=== PATIENT | male | born 1930 | race Caucasian/White ===

== ENCOUNTER 2017-06-13 20:05 | Inpatient (IN) | payer OTHER, MEDICARE ==
[~2017-06-13] VITALS: Ht 180.3 cm; Wt 106.5 kg
[~2017-06-13 20:05] MED LIST: ACETAMINOPHEN500 MG PO; AEROBID INHALER7 GM IH; ALPHAGAN 0100 DROP/5 RIGHT EYE; AMPICILLIN2 GM IV; ASPIR 8181 M1 PO; ASPIR-LOW81 MG PO; ASPIRIN81 M1 PO; Alphagan P 0.15% Oph BOTH EYES; Aspirin E.C. PO; BRIMONIDINE TART5 ML BOTH EYES; BRIMONIDINE TART5 ML OP; COSOPT EYE DROPS5 ML RIGHT EYE; CYANOCOBALAM1000 MCG PO; Colace PO; DuoNeb IH; FINASTERIDE5 MG PO; FLOMAX0.4 MG PO; FLONASE16 G1 BOTH NARES; FLUNISOLIDE25 ML BOTH NARES; FUROSEMIDE20 MG PO; FUROSEMIDE40 MG PO; Flomax PO; Flovent 110 mcg IH; GLIPIZIDE5 MG PO; GLUCOTROL5 MG PO; Gentamicin Sulfate IV; Glucotrol PO; K-DUR20 MEQ PO; Keflex PO; LASIX20 MG PO; LATANOPROST2.5 ML RIGHT EYE; LIDOCAINE700 MG TD; LORATADINE10 M2 PO; Lasix PO; METFORMIN HCL500 MG PO; NOVOLOG PE100 UNITS/ SC; OMEGA POWER 11050 MG PO; OMEGA-31000 M1 PO; Proscar PO; Protonix PO; TAMSULOSIN HCL0.4 MG PO; TRAMADOL HCL50 MG PO; TRAVATAN Z5 ML RIGHT EYE; TRUSOPT5 ML RIGHT EYE; TYLENOL EXTRA500 MG PO; TYLENOL REGULA325 MG PO; Trusopt 2% Ophth Sol BOTH EYES; VASOTEC2.5 MG PO; VASOTEC5 MG PO; VITAMIN B12 100MCG PO; VITAMIN D31000 UNI2 PO; Vasotec PO; ZOCOR20 MG PO; ZOCOR40 MG PO; ZOCOR80 MG PO; Zocor PO; predniSONE PO
[2017-06-13 21:06] LABS: HEMATOCRIT 21.6 % (38.0-50.0); MCV 93.5 FL (86-99); MEAN PLAT.VOLUME 9.5 uM^3 (9.0-12.4); PLATELET COUNT 241 K/uL (156-360); RBC DIS.WIDTH-CV 13.3 % (11.8-14.6); RBC DIS.WIDTH-SD 45.1 % (39-53); RED BLOOD COUNT 2.31 M/uL (4.00-5.50); WHITE BLOOD COUNT 9.1 K/uL (4.1-10.2)
[2017-06-13 21:07] LABS: CHLORIDE 103 mEq/L (99-109); POTASSIUM 4.4 mEq/L (3.7-5.4); SODIUM 137 mEq/L (136-147)
[2017-06-13 21:08] LABS: GLUCOSE 190 mg/dL (70-99)
[2017-06-13 21:10] LABS: ANION GAP 9 MEQ/L (2-14)
[2017-06-13 21:12] LABS: GFR ESTIMATE (CALCULATED) 44 mL/min/
[2017-06-13 21:13] LABS: UREA NITROGEN (BUN) 35 mg/dL (9-23)
[2017-06-13 21:39] LABS: INTER. NORMALIZED RATIO 1.1; PROTHROMBIN TIME 12.4 SEC (10.2-12.9)
[2017-06-13 21:42] LABS: PTT 29.1 SEC (25-37)
[2017-06-13 21:48] LABS: TOTAL BILIRUBIN 0.3 mg/dL (0.0-1.0)
[2017-06-13 21:49] LABS: ALKALINE PHOSPHATASE 48 IU/L (3-129)
[2017-06-13 21:52] LABS: DIRECT BILIRUBIN 0.1 mg/dL (0.0-0.3)
[2017-06-13 21:53] LABS: LIPASE 12 U/L (1.0-51.0)
[2017-06-13 21:59] LABS: TROP-I INTERPRETATION NEGATIVE; TROPONIN-I < 0.01 ng/mL (0.0-0.30)
[2017-06-14] VITALS (15 sets, daily range): BP systolic 138–171; BP diastolic 60–78
[2017-06-14 08:12] LABS: TROP-I INTERPRETATION NEGATIVE; TROPONIN-I < 0.01 ng/mL (0.0-0.30)
[2017-06-14 10:50] LABS: EOSINOPHIL (%) 1.1 % (0-5); EOSINOPHIL COUNT 0.1 K/uL (0-0.3); HEMATOCRIT 30.6 % (38.0-50.0); IMMATURE GRANULOCYTE (%) 0.6 % (0.0-0.7); IMMATURE GRANULOCYTE COUNT 0.1 K/uL; INSTRUMENT ABS NEUTROPHIL CT 6.5 K/uL; MCHC 32.7 G/DL (30.0-36.0); MCV 91.9 FL (86-99); MEAN PLAT.VOLUME 9.5 uM^3 (9.0-12.4); MONOCYTE (%) 9.2 % (3-12); MONOCYTE COUNT 0.8 K/uL (0-0.8); NEUTROPHIL (%) 76.7 % (45-76); NEUTROPHIL COUNT 6.5 K/uL (1.8-6.4); PLATELET COUNT 226 K/uL (156-360); RBC DIS.WIDTH-CV 14.6 % (11.8-14.6); RBC DIS.WIDTH-SD 48.7 % (39-53); WHITE BLOOD COUNT 8.5 K/uL (4.1-10.2)
[2017-06-14 10:54] LABS: RED BLOOD COUNT 3.33 M/uL (4.00-5.50)
[2017-06-14 11:24] LABS: ANION GAP 7 MEQ/L (2-14); CHLORIDE 102 MEQ/L (99-109); POTASSIUM 4.7 MEQ/L (3.7-5.4); SAMPLE HEMOLYSIS CHECK 0; SAMPLE ICTERIC CHECK 0; SAMPLE LIPEMIA CHECK 0; SODIUM 136 MEQ/L (136-147)
[2017-06-14 11:30] LABS: GFR ESTIMATE (CALCULATED) 56 mL/min/; GLUCOSE 234 mg/dL (70-99); UREA NITROGEN (BUN) 33 mg/dL (9-23)
[2017-06-14 12:08] LABS: POINT-OF-CARE METER ID UU14314088
[2017-06-14 12:21] LABS: TROP-I INTERPRETATION NEGATIVE; TROPONIN-I 0.01 ng/mL (0.0-0.30)
[2017-06-14 16:41] LABS: POINT-OF-CARE METER ID UU14107333
[2017-06-14 18:49] LABS: POINT-OF-CARE METER ID UU14314088
[2017-06-14 21:00] LABS: HEMATOCRIT 31.8 % (38.0-50.0); MCV 91.6 FL (86-99)
[2017-06-15] VITALS (7 sets, daily range): BP systolic 128–173; BP diastolic 58–75
[2017-06-15 00:16] LABS: POINT-OF-CARE METER ID UU14314088
[2017-06-15 01:21] LABS: HEMATOCRIT 29.9 % (38.0-50.0); MCV 90.9 FL (86-99)
[2017-06-15 06:33] LABS: POINT-OF-CARE METER ID UU14314088
[2017-06-15 07:09] LABS: EOSINOPHIL (%) 1.9 % (0-5); EOSINOPHIL COUNT 0.2 K/uL (0-0.3); HEMATOCRIT 30.4 % (38.0-50.0); HEMATOCRIT 31.4 % (38.0-50.0); IMMATURE GRANULOCYTE (%) 0.4 % (0.0-0.7); INSTRUMENT ABS NEUTROPHIL CT 5.8 K/uL; MCH 29.3 PG (29.0-34.0); MCHC 31.5 G/DL (30.0-36.0); MCV 91.8 FL (86-99); MCV 92.9 FL (86-99); MONOCYTE (%) 10.6 % (3-12); MONOCYTE COUNT 0.8 K/uL (0-0.8); NEUTROPHIL (%) 74.3 % (45-76); NEUTROPHIL COUNT 5.8 K/uL (1.8-6.4); RBC DIS.WIDTH-CV 14.8 % (11.8-14.6); RBC DIS.WIDTH-SD 49.8 % (39-53); RED BLOOD COUNT 3.38 M/uL (4.00-5.50); WHITE BLOOD COUNT 7.8 K/uL (4.1-10.2)
[2017-06-15 07:31] LABS: ALKALINE PHOSPHATASE 53 IU/L (3-129); ANION GAP 8 MEQ/L (2-14); CHLORIDE 100 MEQ/L (99-109); GFR ESTIMATE (CALCULATED) 51 mL/min/; GLUCOSE 220 mg/dL (70-99); MAGNESIUM 2.2 mg/dl (1.3-2.7); POTASSIUM 4.3 MEQ/L (3.7-5.4); SAMPLE HEMOLYSIS CHECK 0; SAMPLE ICTERIC CHECK 0; SAMPLE LIPEMIA CHECK 0; SODIUM 137 MEQ/L (136-147); TOTAL BILIRUBIN 0.8 MG/DL (0.0-1.0); UREA NITROGEN (BUN) 25 mg/dL (9-23)
[2017-06-15 07:36] LABS: PLAT.SUFFICIENCY ADEQUATE; PLATELET CLUMPS PRESENT - PLATELET COUNT APPEARS ADQ.; PLATELET COUNT UNABLE TO REPORT K/uL (156-360)
[2017-06-15 08:00] LABS: POINT-OF-CARE METER ID UU14314088; POINT-OF-CARE USER ID ENVKC36
[2017-06-15 11:23] LABS: POINT-OF-CARE METER ID UU14174216; POINT-OF-CARE USER ID ENVKC36
[2017-06-15 16:27] LABS: POINT-OF-CARE METER ID UU13113819
[2017-06-15 18:16] LABS: POINT-OF-CARE METER ID UU14314088
[2017-06-15 22:08] LABS: POINT-OF-CARE METER ID UU14174216
[2017-06-16] VITALS (7 sets, daily range): BP systolic 108–171; BP diastolic 57–76
[2017-06-16 07:00] LABS: EOSINOPHIL COUNT 0.1 K/uL (0-0.3); HEMATOCRIT 28.9 % (38.0-50.0); IMMATURE GRANULOCYTE (%) 0.4 % (0.0-0.7); INSTRUMENT ABS NEUTROPHIL CT 5.3 K/uL; LYMPHOCYTE COUNT 0.8 K/uL (1.0-2.8); MCH 28.9 PG (29.0-34.0); MCHC 31.1 G/DL (30.0-36.0); MCV 92.9 FL (86-99); MEAN PLAT.VOLUME 9.4 uM^3 (9.0-12.4); MONOCYTE (%) 11.3 % (3-12); MONOCYTE COUNT 0.8 K/uL (0-0.8); NEUTROPHIL (%) 74.4 % (45-76); NEUTROPHIL COUNT 5.3 K/uL (1.8-6.4); PLATELET COUNT 226 K/uL (156-360); RBC DIS.WIDTH-CV 14.5 % (11.8-14.6); RBC DIS.WIDTH-SD 48.7 % (39-53); RED BLOOD COUNT 3.11 M/uL (4.00-5.50); WHITE BLOOD COUNT 7.1 K/uL (4.1-10.2)
[2017-06-16 07:22] LABS: ANION GAP 6 MEQ/L (2-14); CHLORIDE 100 MEQ/L (99-109); GFR ESTIMATE (CALCULATED) 47 mL/min/; GLUCOSE 193 mg/dL (70-99); POTASSIUM 3.7 MEQ/L (3.7-5.4); SAMPLE HEMOLYSIS CHECK 0; SAMPLE ICTERIC CHECK 0; SAMPLE LIPEMIA CHECK 0; SODIUM 139 MEQ/L (136-147); UREA NITROGEN (BUN) 18 mg/dL (9-23)
[2017-06-16 11:48] LABS: POINT-OF-CARE METER ID UU14107333
[2017-06-16 12:28] LABS: POINT-OF-CARE METER ID UU13113675
[2017-06-16] MEDS ORDERED: FERROUS SULFAT325 MG PO (13:41)
[2017-06-16] MEDS ORDERED: HYDROCORTISONE30 G1 TP (13:41)
[2017-06-16 21:11] LABS: POINT-OF-CARE METER ID UU14188625; POINT-OF-CARE USER ID 603211116
[2017-06-17] VITALS (10 sets, daily range): BP systolic 92–174; BP diastolic 50–76
[2017-06-17 05:13] LABS: EOSINOPHIL (%) 2.1 % (0-5); EOSINOPHIL COUNT 0.2 K/uL (0-0.3); IMMATURE GRANULOCYTE (%) 0.5 % (0.0-0.7); INSTRUMENT ABS NEUTROPHIL CT 5.7 K/uL; LYMPHOCYTE COUNT 0.9 K/uL (1.0-2.8); MCHC 31.4 G/DL (30.0-36.0); MCV 92.4 FL (86-99); MEAN PLAT.VOLUME 9.3 uM^3 (9.0-12.4); MONOCYTE (%) 10.9 % (3-12); MONOCYTE COUNT 0.8 K/uL (0-0.8); NEUTROPHIL (%) 74.1 % (45-76); NEUTROPHIL COUNT 5.7 K/uL (1.8-6.4); PLATELET COUNT 222 K/uL (156-360); RBC DIS.WIDTH-CV 14.2 % (11.8-14.6); RBC DIS.WIDTH-SD 47.7 % (39-53); RED BLOOD COUNT 3.14 M/uL (4.00-5.50); WHITE BLOOD COUNT 7.7 K/uL (4.1-10.2)
[2017-06-17 05:31] LABS: CHLORIDE 101 mEq/L (99-109); POTASSIUM 3.7 mEq/L (3.7-5.4); SODIUM 141 mEq/L (136-147)
[2017-06-17 05:34] LABS: GLUCOSE 178 mg/dL (70-99)
[2017-06-17 05:35] LABS: ANION GAP 9 MEQ/L (2-14)
[2017-06-17 05:37] LABS: ALKALINE PHOSPHATASE 52 IU/L (3-129); GFR ESTIMATE (CALCULATED) 47 mL/min/
[2017-06-17 05:38] LABS: TOTAL BILIRUBIN 0.5 mg/dL (0.0-1.0); UREA NITROGEN (BUN) 13 mg/dL (9-23)
[2017-06-17 07:42] LABS: POINT-OF-CARE METER ID UU13113717
[2017-06-17 12:27] LABS: POINT-OF-CARE METER ID UU13113717
[2017-06-17 17:26] LABS: POINT-OF-CARE METER ID UU13113717
[2017-06-17 21:53] LABS: POINT-OF-CARE METER ID UU13113675
[2017-06-17 22:03] LABS: BASE EXCESS 6.9 mEq/L (-3 to +3); BICARBONATE 31.3 mEq/L (22-26); CARBOXY HGB 1.7 % (0-5); COMMENTS - BLOOD GASES C+A+; DEVICE 980 VENT; FI02 40 %; MECHANICAL RATE 10 resp/min; METHEMOGLOBIN 1.8 % (0-1.5); MODE SIMV; PCO2 43 mm Hg (35-45); PEEP 5 CM/H20; PO2 101 mm Hg (80-100); PRES. SUPPORT 12 CM/H2O; SITE LR; TIDAL VOLUME 500 ML; TOTAL RESP RATE 10 resp/min; pH 7.47 (7.35-7.45)
[2017-06-17 22:11] LABS: HEMATOCRIT 29.6 % (38.0-50.0); MCH 28.8 PG (29.0-34.0); MCHC 31.4 G/DL (30.0-36.0); MCV 91.6 FL (86-99); MEAN PLAT.VOLUME 9.3 uM^3 (9.0-12.4); PLATELET COUNT 223 K/uL (156-360); RBC DIS.WIDTH-CV 13.8 % (11.8-14.6); RBC DIS.WIDTH-SD 45.8 % (39-53); RED BLOOD COUNT 3.23 M/uL (4.00-5.50); WHITE BLOOD COUNT 13.6 K/uL (4.1-10.2)
[2017-06-17 22:21] LABS: ANION GAP 7 MEQ/L (2-14); CHLORIDE 100 MEQ/L (99-109); POTASSIUM 3.4 MEQ/L (3.7-5.4); SAMPLE HEMOLYSIS CHECK 0; SAMPLE ICTERIC CHECK 0; SAMPLE LIPEMIA CHECK 0; SODIUM 135 MEQ/L (136-147)
[2017-06-17 22:26] LABS: GFR ESTIMATE (CALCULATED) 51 mL/min/; GLUCOSE 172 mg/dL (70-99); UREA NITROGEN (BUN) 12 mg/dL (9-23)
[2017-06-18] VITALS (27 sets, daily range): BP systolic 82–159; BP diastolic 33–68
[2017-06-18 00:09] LABS: POINT-OF-CARE METER ID UU14314082
[2017-06-18 00:15] LABS: METH RESISTANT S AUREUS PCR NEGATIVE (NEGATIVE)
[2017-06-18 00:18] LABS: SPECIMEN PROCESSING CONTROL PASS
[2017-06-18 00:19] LABS: PROBE CHECK PASS
[2017-06-18 04:45] LABS: HEMATOCRIT 28.4 % (38.0-50.0); MCH 28.7 PG (29.0-34.0); MCV 92.5 FL (86-99); MEAN PLAT.VOLUME 9.6 uM^3 (9.0-12.4); PLATELET COUNT 221 K/uL (156-360); RBC DIS.WIDTH-CV 13.7 % (11.8-14.6); RBC DIS.WIDTH-SD 45.9 % (39-53); RED BLOOD COUNT 3.07 M/uL (4.00-5.50)
[2017-06-18 04:55] LABS: CHLORIDE 103 mEq/L (99-109); POTASSIUM 3.9 mEq/L (3.7-5.4); SODIUM 138 mEq/L (136-147)
[2017-06-18 04:57] LABS: GLUCOSE 230 mg/dL (70-99)
[2017-06-18 04:59] LABS: ANION GAP 6 MEQ/L (2-14)
[2017-06-18 05:01] LABS: GFR ESTIMATE (CALCULATED) 47 mL/min/
[2017-06-18 05:02] LABS: UREA NITROGEN (BUN) 12 mg/dL (9-23)
[2017-06-18 05:46] LABS: EOSINOPHIL (%) 0 % (0-5); IMMATURE GRANULOCYTE (%) 0.3 % (0.0-0.7); IMMATURE GRANULOCYTE COUNT 0.1 K/uL; INSTRUMENT ABS NEUTROPHIL CT 14.4 K/uL; LYMPHOCYTE COUNT 0.5 K/uL (1.0-2.8); MONOCYTE (%) 6.4 % (3-12); NEUTROPHIL (%) 90.1 % (45-76); NEUTROPHIL COUNT 14.4 K/uL (1.8-6.4)
[2017-06-18 05:50] LABS: POINT-OF-CARE METER ID UU14314082
[2017-06-18 07:13] LABS: Estimated Average Glucose 157 mg/dL (70-123); HEMOGLOBIN A1c (GLYCOHEMOGLOB) 7.1 % HGB (Below 5.7)
[2017-06-18 10:32] LABS: BASE EXCESS 3.2 mEq/L (-3 to +3); BICARBONATE 28.5 mEq/L (22-26); METHEMOGLOBIN 2.1 % (0-1.5); PCO2 46 mm Hg (35-45); PO2 84 mm Hg (80-100)
[2017-06-18 10:34] LABS: COMMENTS - BLOOD GASES C+; DEVICE VENT; FI02 30 %; MODE TC; PEEP 5 CM/H20; SITE RR; TOTAL RESP RATE 20 resp/min
[2017-06-18 13:29] LABS: POINT-OF-CARE METER ID UU13113803
[2017-06-18 18:26] LABS: POINT-OF-CARE METER ID UU13113803
[2017-06-19] VITALS (25 sets, daily range): BP systolic 101–154; BP diastolic 35–72
[2017-06-19 00:03] LABS: POINT-OF-CARE METER ID UU13113803
[2017-06-19 05:02] LABS: HEMATOCRIT 24.1 % (38.0-50.0); MCH 29.6 PG (29.0-34.0); MCHC 31.5 G/DL (30.0-36.0); MCV 93.8 FL (86-99); PLATELET COUNT 208 K/uL (156-360); RBC DIS.WIDTH-CV 14.2 % (11.8-14.6); RBC DIS.WIDTH-SD 48.1 % (39-53); RED BLOOD COUNT 2.57 M/uL (4.00-5.50); WHITE BLOOD COUNT 12.7 K/uL (4.1-10.2)
[2017-06-19 05:12] LABS: CHLORIDE 108 mEq/L (99-109); POTASSIUM 3.8 mEq/L (3.7-5.4); SODIUM 140 mEq/L (136-147)
[2017-06-19 05:14] LABS: GLUCOSE 185 mg/dL (70-99)
[2017-06-19 05:15] LABS: ANION GAP 7 MEQ/L (2-14)
[2017-06-19 05:18] LABS: GFR ESTIMATE (CALCULATED) 44 mL/min/
[2017-06-19 05:19] LABS: UREA NITROGEN (BUN) 13 mg/dL (9-23)
[2017-06-19 06:53] LABS: POINT-OF-CARE METER ID UU13113803; POINT-OF-CARE USER ID 606021424
[2017-06-19 09:55] LABS: HEMATOCRIT 24.6 % (38.0-50.0); MCH 29.8 PG (29.0-34.0); MCHC 31.3 G/DL (30.0-36.0); MCV 95.3 FL (86-99); MEAN PLAT.VOLUME 9.9 uM^3 (9.0-12.4); PLATELET COUNT 206 K/uL (156-360); RBC DIS.WIDTH-CV 14.3 % (11.8-14.6); RED BLOOD COUNT 2.58 M/uL (4.00-5.50); WHITE BLOOD COUNT 11.8 K/uL (4.1-10.2)
[2017-06-19 10:21] LABS: INTER. NORMALIZED RATIO 1.3; PROTHROMBIN TIME 14.7 SEC (10.2-12.9)
[2017-06-19 10:23] LABS: PTT 28.6 SEC (25-37)
[2017-06-19 12:20] LABS: POINT-OF-CARE METER ID UU13113803
[2017-06-19 13:28] LABS: BASE EXCESS 2.9 mEq/L (-3 to +3); BICARBONATE 27.9 mEq/L (22-26); PCO2 43 mm Hg (35-45); PO2 96 mm Hg (80-100); pH 7.42 (7.35-7.45)
[2017-06-19 13:29] LABS: DEVICE NC; O2 FLOW 3 L/MIN; SITE RR; TOTAL RESP RATE 16 resp/min
[2017-06-19 17:15] LABS: POINT-OF-CARE METER ID UU13113803
[2017-06-19 21:30] LABS: HEMATOCRIT 27.2 % (38.0-50.0); MCHC 30.9 G/DL (30.0-36.0); MCV 93.8 FL (86-99); MEAN PLAT.VOLUME 9.9 uM^3 (9.0-12.4); PLATELET COUNT 200 K/uL (156-360); RBC DIS.WIDTH-CV 13.9 % (11.8-14.6); RBC DIS.WIDTH-SD 47.6 % (39-53); WHITE BLOOD COUNT 11.5 K/uL (4.1-10.2)
[2017-06-19 23:59] LABS: POINT-OF-CARE METER ID UU13113803; POINT-OF-CARE USER ID RADDRS44
[2017-06-20] VITALS (19 sets, daily range): BP systolic 106–140; BP diastolic 47–71
[2017-06-20 04:51] LABS: EOSINOPHIL (%) 0.8 % (0-5); EOSINOPHIL COUNT 0.1 K/uL (0-0.3); HEMATOCRIT 26.8 % (38.0-50.0); IMMATURE GRANULOCYTE (%) 1.2 % (0.0-0.7); IMMATURE GRANULOCYTE COUNT 0.1 K/uL; INSTRUMENT ABS NEUTROPHIL CT 8.2 K/uL; LYMPHOCYTE COUNT 0.5 K/uL (1.0-2.8); MCH 29.2 PG (29.0-34.0); MCHC 31.3 G/DL (30.0-36.0); MCV 93.1 FL (86-99); MEAN PLAT.VOLUME 10.3 uM^3 (9.0-12.4); MONOCYTE (%) 8.5 % (3-12); MONOCYTE COUNT 0.8 K/uL (0-0.8); NEUTROPHIL COUNT 8.2 K/uL (1.8-6.4); PLATELET COUNT 209 K/uL (156-360); RBC DIS.WIDTH-SD 47.6 % (39-53); RED BLOOD COUNT 2.88 M/uL (4.00-5.50); WHITE BLOOD COUNT 9.8 K/uL (4.1-10.2)
[2017-06-20 05:10] LABS: CHLORIDE 109 mEq/L (99-109); POTASSIUM 3.9 mEq/L (3.7-5.4); SODIUM 140 mEq/L (136-147)
[2017-06-20 05:12] LABS: GLUCOSE 187 mg/dL (70-99)
[2017-06-20 05:14] LABS: ANION GAP 7 MEQ/L (2-14)
[2017-06-20 05:16] LABS: GFR ESTIMATE (CALCULATED) > 59 mL/min/
[2017-06-20 05:17] LABS: UREA NITROGEN (BUN) 12 mg/dL (9-23)
[2017-06-20 05:47] LABS: POINT-OF-CARE METER ID UU13113803; POINT-OF-CARE USER ID RADDRS44
[2017-06-20 11:50] LABS: POINT-OF-CARE METER ID UU13113803
[2017-06-20 17:45] LABS: POINT-OF-CARE METER ID UU13113803
[2017-06-20 22:29] LABS: POINT-OF-CARE METER ID UU13113803; POINT-OF-CARE USER ID RADDRS44
[2017-06-21] VITALS (7 sets, daily range): BP systolic 127–168; BP diastolic 46–73
[2017-06-21 04:26] LABS: HEMATOCRIT 26.5 % (38.0-50.0); MCH 29.1 PG (29.0-34.0); MCHC 31.3 G/DL (30.0-36.0); MEAN PLAT.VOLUME 10.5 uM^3 (9.0-12.4); PLATELET COUNT 193 K/uL (156-360); RBC DIS.WIDTH-SD 47.7 % (39-53); RED BLOOD COUNT 2.85 M/uL (4.00-5.50)
[2017-06-21 04:42] LABS: CHLORIDE 108 mEq/L (99-109); POTASSIUM 3.9 mEq/L (3.7-5.4); SODIUM 137 mEq/L (136-147)
[2017-06-21 04:43] LABS: GLUCOSE 176 mg/dL (70-99)
[2017-06-21 04:45] LABS: ANION GAP 5 MEQ/L (2-14)
[2017-06-21 04:47] LABS: GFR ESTIMATE (CALCULATED) > 59 mL/min/
[2017-06-21 04:48] LABS: UREA NITROGEN (BUN) 9 mg/dL (9-23)
[2017-06-21 12:24] LABS: POINT-OF-CARE METER ID UU14208751; POINT-OF-CARE USER ID 612031313
[2017-06-21 17:50] LABS: POINT-OF-CARE METER ID UU14208751; POINT-OF-CARE USER ID 612031313
[2017-06-21 22:40] LABS: POINT-OF-CARE METER ID UU14208751; POINT-OF-CARE USER ID RADDRS44
[2017-06-22] VITALS (8 sets, daily range): BP systolic 129–176; BP diastolic 49–78
[2017-06-22 05:21] LABS: HEMATOCRIT 27.3 % (38.0-50.0); MCH 29.7 PG (29.0-34.0); MCHC 31.9 G/DL (30.0-36.0); MCV 93.2 FL (86-99); MEAN PLAT.VOLUME 9.7 uM^3 (9.0-12.4); PLATELET COUNT 238 K/uL (156-360); RBC DIS.WIDTH-CV 13.8 % (11.8-14.6); RBC DIS.WIDTH-SD 46.7 % (39-53); RED BLOOD COUNT 2.93 M/uL (4.00-5.50); WHITE BLOOD COUNT 6.3 K/uL (4.1-10.2)
[2017-06-22 05:53] LABS: ANION GAP 4 MEQ/L (2-14); CHLORIDE 106 MEQ/L (99-109); GFR ESTIMATE (CALCULATED) > 59 mL/min/; GLUCOSE 197 mg/dL (70-99); POTASSIUM 3.9 MEQ/L (3.7-5.4); SAMPLE HEMOLYSIS CHECK 0; SAMPLE ICTERIC CHECK 0; SAMPLE LIPEMIA CHECK 0; SODIUM 138 MEQ/L (136-147); UREA NITROGEN (BUN) 8 mg/dL (9-23)
[2017-06-22 11:30] LABS: POINT-OF-CARE METER ID UU14174217; POINT-OF-CARE USER ID 612031313
[2017-06-22 18:19] LABS: POINT-OF-CARE METER ID UU14208750
[2017-06-22 21:45] LABS: POINT-OF-CARE METER ID UU14314084
[2017-06-23 03:26] VITALS: BP 160/69
[2017-06-23 06:26] LABS: POINT-OF-CARE METER ID UU14314084
[2017-06-23 07:02] LABS: HEMATOCRIT 27.1 % (38.0-50.0); MCH 29.4 PG (29.0-34.0); MCHC 31.7 G/DL (30.0-36.0); MCV 92.5 FL (86-99); PLATELET COUNT 245 K/uL (156-360); RBC DIS.WIDTH-SD 47.2 % (39-53); RED BLOOD COUNT 2.93 M/uL (4.00-5.50); WHITE BLOOD COUNT 5.5 K/uL (4.1-10.2)
[2017-06-23 07:10] VITALS: BP 138/66
[2017-06-23 07:27] LABS: ANION GAP 5 MEQ/L (2-14); CHLORIDE 106 MEQ/L (99-109); GFR ESTIMATE (CALCULATED) > 59 mL/min/; GLUCOSE 185 mg/dL (70-99); POTASSIUM 3.9 MEQ/L (3.7-5.4); SAMPLE HEMOLYSIS CHECK 0; SAMPLE ICTERIC CHECK 0; SAMPLE LIPEMIA CHECK 0; SODIUM 141 MEQ/L (136-147); UREA NITROGEN (BUN) 7 mg/dL (9-23)
[2017-06-23 11:05] VITALS: BP 142/67
[2017-06-23 11:59] LABS: POINT-OF-CARE METER ID UU14162508
[2017-06-23 15:05] VITALS: BP 110/53
[2017-06-23 16:41] LABS: POINT-OF-CARE METER ID UU14314084
[2017-06-23 17:27] LABS: POINT-OF-CARE METER ID UU14208750
[2017-06-23 19:25] VITALS: BP 161/64
[2017-06-23 21:47] LABS: POINT-OF-CARE METER ID UU14314084
[2017-06-23 22:07] VITALS: BP 140/63
[2017-06-24 03:58] VITALS: BP 136/65
[2017-06-24 06:15] LABS: POINT-OF-CARE METER ID UU14162508
[2017-06-24 06:39] LABS: HEMATOCRIT 26.4 % (38.0-50.0); MCH 29.6 PG (29.0-34.0); MCHC 31.8 G/DL (30.0-36.0); MEAN PLAT.VOLUME 10.1 uM^3 (9.0-12.4); PLATELET COUNT 274 K/uL (156-360); RBC DIS.WIDTH-SD 47.8 % (39-53); RED BLOOD COUNT 2.84 M/uL (4.00-5.50); WHITE BLOOD COUNT 7.3 K/uL (4.1-10.2)
[2017-06-24 07:00] LABS: ANION GAP 6 MEQ/L (2-14); CHLORIDE 102 MEQ/L (99-109); GFR ESTIMATE (CALCULATED) 47 mL/min/; GLUCOSE 163 mg/dL (70-99); SAMPLE HEMOLYSIS CHECK 0; SAMPLE ICTERIC CHECK 0; SAMPLE LIPEMIA CHECK 0; SODIUM 139 MEQ/L (136-147); UREA NITROGEN (BUN) 10 mg/dL (9-23)
[2017-06-24 08:18] VITALS: BP 140/69
[2017-06-24] MEDS ORDERED: METRONIDAZOLE500 MG PO (08:32)
[2017-06-24] MEDS ORDERED: BACTRIM,SEPT1 TABLET PO (08:32)
[2017-06-24] MEDS ORDERED: NIFEREX-150,FE150 MG PO (08:33)
[2017-06-24] MEDS ORDERED: PANTOPRAZOLE SO40 MG PO (08:34)
[2017-06-24] MEDS ORDERED: LEVEMIR100 UNIT/2 SC (08:35)
[2017-06-24] MEDS ORDERED: NOVOLOG PE100 UNITS/ SC (08:35)
[2017-06-24] MEDS ORDERED: ACIDOPHILUS1 EAC4 PO (08:36)
[2017-06-24] MEDS ORDERED: OXYCODONE HCL5 MG PO (08:37)
[2017-06-24 12:00] LABS: POINT-OF-CARE METER ID UU14314084; POINT-OF-CARE USER ID PUTDRM
[2017-06-24 12:27] VITALS: BP 138/63
== END 2017-06-24 12:37 | DRG 330 ==
LOC: EME 20:05 → 4WEST 06-14 02:15 → EDOF 06-14 02:15 → 5SOUTH 06-14 02:15 → 4EAST 06-14 02:15 → ENRESERV 06-14 02:16 → 4EAST 06-14 03:01 → ENRESERV 06-15 23:37 → 5SOUTH 06-16 00:53 → ENRESERV 06-17 21:35 → 4WEST 06-17 22:40 → ENRESERV 06-22 15:19 → 2EAST 06-22 17:29
PROVIDERS: Emergency Medicine; Family Medicine; Hospitalist; Internal Medicine; Internal Medicine Critical Care Medicine; Internal Medicine Gastroenterology; Obstetrics & Gynecology; Surgery
PROC: 30233N1 Transfusion of Nonautologous Red Blood Cells into Peripheral Vein, Percutaneous Approach (ICD-10-PCS; 2017-06-14)
PROC: 0DB68ZX Excision of Stomach, Via Natural or Artificial Opening Endoscopic, Diagnostic (ICD-10-PCS; 2017-06-14)
PROC: 0DJD8ZZ Inspection of Lower Intestinal Tract, Via Natural or Artificial Opening Endoscopic (ICD-10-PCS; 2017-06-15)
PROC: 0DBK8ZX Excision of Ascending Colon, Via Natural or Artificial Opening Endoscopic, Diagnostic (ICD-10-PCS; 2017-06-16)
PROC: 0DNF0ZZ Release Right Large Intestine, Open Approach (ICD-10-PCS; principal; 2017-06-17)
PROC: 0DTF0ZZ Resection of Right Large Intestine, Open Approach (ICD-10-PCS; principal; 2017-06-17)
DX: C18.2 Malignant neoplasm of ascending colon (principal); C77.2 Secondary and unspecified malignant neoplasm of intra-abdominal lymph nodes; C78.01 Secondary malignant neoplasm of right lung; K66.0 Peritoneal adhesions (postprocedural) (postinfection); R09.02 Hypoxemia; N28.9 Disorder of kidney and ureter, unspecified; I95.9 Hypotension, unspecified; T81.4XXA Infection following a procedure, initial encounter; L03.311 Cellulitis of abdominal wall; K92.2 Gastrointestinal hemorrhage, unspecified; D62 Acute posthemorrhagic anemia; I13.0 Hypertensive heart and chronic kidney disease with heart failure and stage 1 through stage 4 chronic kidney disease, or unspecified chronic kidney disease; I50.32 Chronic diastolic (congestive) heart failure; E11.22 Type 2 diabetes mellitus with diabetic chronic kidney disease; N18.3 Chronic kidney disease, stage 3 (moderate); N40.0 Benign prostatic hyperplasia without lower urinary tract symptoms; K21.9 Gastro-esophageal reflux disease without esophagitis; E78.00 Pure hypercholesterolemia, unspecified; E78.5 Hyperlipidemia, unspecified; F03.90 Unspecified dementia, unspecified severity, without behavioral disturbance, psychotic disturbance, mood disturbance, and anxiety; I25.10 Atherosclerotic heart disease of native coronary artery without angina pectoris; J45.909 Unspecified asthma, uncomplicated; K25.3 Acute gastric ulcer without hemorrhage or perforation; K44.9 Diaphragmatic hernia without obstruction or gangrene; K56.41 Fecal impaction; K57.30 Diverticulosis of large intestine without perforation or abscess without bleeding; K29.70 Gastritis, unspecified, without bleeding; K64.8 Other hemorrhoids; E66.9 Obesity, unspecified; Z66 Do not resuscitate; Z68.32 Body mass index [BMI] 32.0-32.9, adult; Z79.82 Long term (current) use of aspirin; Z95.1 Presence of aortocoronary bypass graft; Z95.0 Presence of cardiac pacemaker; Z85.828 Personal history of other malignant neoplasm of skin; Z95.3 Presence of xenogenic heart valve; Z87.891 Personal history of nicotine dependence
CPT/HCPCS: 36600; 71010; 71260; 74176; 80048; 80048 91; 80053; 80069; 80076; 82378; 82803; 82948; 83036; 83605; 83690; 83735; 83880; 84100; 84484; 85014; 85018; 85025; 85027; 85610; 85730; 86850; 86900; 86901; 86920; 87070; 87205; 87641; 88305; 88309; 88342 TC; 93005; 94002; 94003; 94799; 97530 GO; 97530 GP; 99281; 99285; C9113; J0131; J0330; J1100; J1170; J1644; J1815; J1940; J2001; J2354; J2405; J2704; J2795; J3010; J3475; J7030; J7040; J7050; P9016